=== PATIENT | female | born 1990 | race Caucasian/White ===

== ENCOUNTER 2021-07-04 05:16 | Observation (INO) ==
--- NOTE | 2021-06-29 08:42 | Anesthesiology Consultation ---
Date of Service June 29, 2021 Assessment & Plan (1) Encounter for pre-operative examination: - COVID screening: Per assessment on 06/29: No known COVID-19 positive contacts or current COVID-19 related symptoms. Travel screen negative. Patient vaccinated. Surgeon arranging preop COVID testing. Awaiting results. - S/P lap tod (09/02/20): Grade 1 view, MAC#3, ETT 7.0 at [facility] Chart Review Chart Review: Acceptable Risk for Surgery and Patient NOT seen in Pre Admission Testing History Surgery Operation Date: 07/04/21 07:15 Proposed Procedures p Abdominoplasty (Insurance Panniculectomy) - MD bin Bruce Open Ventral Hernia Repair, Possible Mesh - Rigoberto Newsome DO Height/Weight Height: 5 ft 0.75 in Weight: 84.368 kg Allergies Allergy/AdvReac Type Severity Reaction Status Date / Time Sulfa (Sulfonamide Allergy Severe Rash/Hives Verified 09/13/20 14:16 Antibiotics) citric acid [From Bicitra] AdvReac Severe N/V Verified 06/29/21 08:39 sodium citrate [From Bicitra] AdvReac Severe N/V Verified 06/29/21 08:39 sulfates Allergy Severe Difficulty Uncoded 09/13/20 14:16 Breathing Medications Home Medications Medication Instructions Recorded Confirmed Last Taken albuterol sulfate 90 mcg/actuation 2 puff INHALATION Q6H PRN 06/07/20 06/29/21 Unknown aerosol inhaler topiramate 50 mg tablet 50 mg PO QAM 06/07/20 06/29/21 09/01/20 20:00 levothyroxine 88 mcg capsule 88 mcg PO QAM 09/01/20 06/29/21 09/01/20 06:00 diazepam 5 mg tablet (Valium) 5 mg PO Q6H PRN #14 tab 06/22/21 06/29/21 Unknown oxycodone-acetaminophen 5 mg-325 1 tab PO Q4H PRN #18 tab 06/22/21 06/29/21 Unknown mg tablet (Endocet) Past Medical History Medical History Asthma exercise induced, well controlled History of COVID-19 02/2021 > "mild symptoms" > resolved Hypothyroidism Iron deficiency hx iron def anemia per PCP records Mixed hyperlipidemia Renal stone hx Past Family History Family History Father Hypertension Heart disease Mother Diabetes Ovarian cancer Lung disease Grandmother Diabetes Past Surgical History Surgical History H/O section x 5 05/02/09,05/24/06, 01/13/19, 08/31/11, 10/12/14 Surrogate 2011, 2014, 2016 2014 Carrying embryo from another couple History of dilatation and curettage History of esophagogastroduodenoscopy (EGD) History of lithotripsy cystouretero with lithotripsy (right) History of removal of ureteral stent right Hx laparoscopic cholecystectomy Laparoscopic Cholecystectomy Dr. Newsome 09/02/2020 S/P tonsillectomy and adenoidectomy Status post tubal ligation 2016 Social History Smoking Status: Never smoker Do You Dip or Chew Tobacco: No Hx Alcohol Use: Yes alcohol intake frequency: holidays/special occasions only Hx Substance Use: No substance use type: does not use Lab Results Anesthesia Preop Results Results Anesthesia Widget: WBC 7.64 K/uL (4.8-10.8) 06/27/21 Hgb 12.8 g/dL (12.0-16.0) 06/27/21 Hct 40.3 % (37-47) 06/27/21 Plt 406 K/uL (130-400) H 06/27/21 Na 136 mmol/L (136-145) 06/27/21 K 3.7 mmol/L (3.5-5.1) 06/27/21 Cl 105 mmol/L (98-107) 06/27/21 CO2 26 mmol/L (21-32) 06/27/21 BUN 12 mg/dl (6-23) 06/27/21 Creat 0.65 mg/dl (0.6-1.2) 06/27/21 Glucose Level 83 mg/dl (70-99(Fasting)) 06/27/21 PT 10.4 Seconds (9.0-12.0) 06/27/21 INR 1.0 (0.9-1.1) 06/27/21 Testing Electrocardiogram Date: 08/23/20 Findings: + NSR @ (75)
[2021-07-04] MEDS ORDERED: LR 15ML/HR IV SCH (06:00)
[2021-07-04] MEDS ORDERED: ceFAZolin 2000MG 2,000 MG/15 ML SYR IV SCH (06:00)
[2021-07-04] MEDS ORDERED: EPINEPHrine INJ 1 MG/ML AMP ONE (06:35)
[2021-07-04] MEDS ORDERED: BUPIVACAINE 0.5 % 5 MG/1 ML MPF 30ML VIAL ONE (06:36)
[2021-07-04] MEDS ORDERED: LIDOCAINE 1% LOCAL 20 ML VIAL ONE (06:36)
[2021-07-04] MEDS ORDERED: LIDOCAINE 1%/EPINEPHRINE 1:100,000 50 ML VIAL ONE (06:36)
[2021-07-04] MEDS ORDERED: BUPIVACAINE 0.25% 30 ML VIAL ONE (06:36)
[2021-07-04] MEDS ORDERED: ATROPINE SULFATE 0.1 MG/ML 10ML SYR IV PRN (06:49)
[2021-07-04] MEDS ORDERED: ePHEDrine sulfate 50 MG/ML AMP IV PRN (06:49)
[2021-07-04] MEDS ORDERED: DROPERIDOL 5 MG/2 ML VIAL IV PRN (06:49)
[2021-07-04] MEDS ORDERED: ONDANSETRON INJ 2 MG/ML 2 ML VIAL IV PRN ×2 (06:49→13:30)
[2021-07-04] MEDS ORDERED: fentaNYL citrate 100 MCG/2 ML VIAL ONE ×2 (06:50→09:40)
[2021-07-04] MEDS ORDERED: MIDAZOLAM HCL 1 MG/ML 2ML VIAL ONE ×3 (06:50→06:53)
[2021-07-04] MEDS ORDERED: DEXAMETHASONE SOD INJ 4 MG/ML VIAL ONE (06:50)
[2021-07-04] MEDS ORDERED: HYDROmorphone INJ 2 MG/ML SYR/VIAL ONE (06:50)
[2021-07-04] MEDS ORDERED: ROCURONIUM BROMIDE 10 MG/ML 5 ML VIAL IV ONE (06:50)
[2021-07-04] MEDS ORDERED: ONDANSETRON INJ 2 MG/ML 2 ML VIAL ONE (06:50)
[2021-07-04] MEDS ORDERED: LIDOCAINE 2% 2 ML VIAL/AMP(20MG/ML) INFIL ONE (06:50)
[2021-07-04] MEDS ORDERED: PROPOFOL IV EMULSION 10 MG/ML 20 ML VIAL IV ONE (06:50)
--- NOTE | 2021-07-04 07:00 | History & Physical Bridge Note ---
Date of Service July 04, 2021 History & Physical Bridge Note I have examined the patient, reviewed the History & Physical and in the interval since the performance of the History & Physical I have noted the following changes of clinical significance: no changes noted
[2021-07-04] MEDS ORDERED: BUPIVACAINE 0.5 % 5 MG/1 ML PF 10ML VIAL ONE (07:01)
[2021-07-04] MEDS ORDERED: ACETAMINOPHEN 1000 MG/100 ML IV IV ONE (07:02)
--- NOTE | 2021-07-04 07:15 | History & Physical Report ---
Date of Service July 04, 2021 Assessment & Plan (1) Hernia of abdominal cavity: Plan: Dr. Soler to perform the abdominoplasty portion of the procedure. Once the abdominal wall is exposed I will repair any and all hernias. We discussed there may or may not need to use mesh depending on the size and characteristics of the hernia. We discussed bleeding, infection, infection of mesh, injury to other organs, blood clots etc. I have answered all of her questions. We will proceed today with repair of ventral hernia/hernias possible mesh (2) Abdominal pannus: (3) Metabolic syndrome: History of Present Illness Primary Care Provider: Fabian Fisher Patient here for a combined procedure with Dr. Soler. The procedures panniculectomy as well as repair of ventral hernia x2. Is been no change to her health history since I seen her last. She has imaging that confirms the hernias. Allergies Allergy/AdvReac Type Severity Reaction Status Date / Time Sulfa (Sulfonamide Allergy Severe Rash/Hives Verified 07/04/21 05:49 Antibiotics) citric acid [From Bicitra] AdvReac Severe N/V Verified 07/04/21 05:49 sodium citrate [From Bicitra] AdvReac Severe N/V Verified 07/04/21 05:49 sulfates Allergy Severe Difficulty Uncoded 07/04/21 05:49 Breathing Home Medications Medication Instructions Recorded Confirmed Type albuterol sulfate 90 mcg/actuation 2 puff INHALATION Q6H PRN 06/07/20 07/04/21 History aerosol inhaler topiramate 50 mg tablet 50 mg PO QAM 06/07/20 07/04/21 History levothyroxine 88 mcg capsule 88 mcg PO QAM 09/01/20 07/04/21 History diazepam 5 mg tablet (Valium) 5 mg PO Q6H PRN #14 tab 06/22/21 07/04/21 Rx oxycodone-acetaminophen 5 mg-325 1 tab PO Q4H PRN #18 tab 06/22/21 07/04/21 Rx mg tablet (Endocet) Past Med/Surg History Medical History Asthma exercise induced, well controlled History of COVID-19 02/2021 > "mild symptoms" > resolved Hypothyroidism Iron deficiency hx iron def anemia per PCP records Mixed hyperlipidemia Renal stone hx Surgical History H/O section x 5 05/02/09,05/24/06, 01/13/19, 08/31/11, 10/12/14 Surrogate 2011, 2014, 2016 2014 Carrying embryo from another couple History of dilatation and curettage History of esophagogastroduodenoscopy (EGD) History of lithotripsy cystouretero with lithotripsy (right) History of removal of ureteral stent right Hx laparoscopic cholecystectomy Laparoscopic Cholecystectomy Dr. Newsome 09/02/2020 S/P tonsillectomy and adenoidectomy Status post tubal ligation 2016 Family History Father Hypertension Heart disease Mother Diabetes Ovarian cancer Lung disease Grandmother Diabetes Social History Smoking Status: Never smoker Second Hand Exposure: No; Do You Dip or Chew Tobacco: No; Tobacco Cessation Education Requested by Patient: No Hx Alcohol Use: Yes Hx Substance Use: No Preferred Language: Upper Sorbian Communication Ability: Effective Tool Marker Required: No Beliefs That Will Affect Care: None marital status: Current Living Situation: Family current occupational status: employed 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 Other Information That Helps Us Care for You: No Feels Safe at Home: Yes Safety Concerns: Feels Safe At This Time Assistive Devices: Glasses Review of Systems All systems reviewed & are unremarkable except as noted in HPI & below Physical Exam Constitutional: WD/WN, vitals as above no acute distress and not ill appearing Eyes: PERRL, conjunctivae normal, anicteric sclerae EOM intact bilaterally ENMT: external ear and nose normal, oropharynx normal Ears: no hearing impairment Neck: trachea midline, no thyromegaly Respiratory: normal respiratory effort; no respiratory distress and does not use accessory muscles Cardiovascular: Rate/Rhythm: regular rate and regular rhythm Gastrointestinal (Abdomen): Soft. 1 palpable hernia near the umbilicus. Questionable small hernia upper midline. No other palpable abnormalities. Positive abdominal pannus. Skin: no rashes, warm and dry Psychiatric: Orientation: alert, oriented x 3 and cooperative Results & Data ([facility]) Vital Signs (Past 12 Hours) Vital Signs Temp Pulse Resp BP Pulse Ox 07/04/21 05:42 37.2 C 95 H 20 110/69 99
[2021-07-04] MEDS ORDERED: TISSEEL FIBRIN SEALANT 4ML TOP ONE (08:18)
[2021-07-04] MEDS ORDERED: KETAMINE 50 MG/5 ML SYRINGE ONE (08:25)
[2021-07-04] MEDS ORDERED: SUGAMMADEX SODIUM 200 MG/2 ML VIAL IV ONE (09:15)
--- NOTE | 2021-07-04 09:16 | Operative Report ---
PG Post Operative Report Pre & Post Diagnosis Operation Date: 07/04/21 07:15 Pre-Op Diagnosis: Abdominal Pannus and Ventral Hernia Post-Op Diagnosis: Abdominal Pannus and Ventral Hernia I identified the patient and participated in the time-out.: Yes Procedure Operation Date: 07/04/21 07:15 Actual Procedures p Abdominoplasty (Insurance Panniculectomy)(Not Applicable) - Marisol Soler MD s Open Ventral Hernia Repair x 3. (Not Applicable) - Rigoberto Newsome DO Surgeon Rigoberto Newsome DO Physical Meteorologist Dr. Soler Estimated Blood Loss 5 Findings Consistent with Post-Op Diagnosis Specimens None Description of Procedure After informed consent was obtained the patient had been taken back to the operating room. Please see Dr. Soler's note for the majority of the procedure. She had made a hip to hip incision as well as midline incision and had exposed essentially the entire abdominal wall. There were 3 separate hernias. One below the umbilicus one right at the umbilicus and one above the umbilicus. All were relatively small and tension-free. They did not require mesh. The patient was already intubated and the panniculectomy flap created. I scrubbed into the case. Dr. Soler assisted me throughout my portion of the case. We began with the supraumbilical hernia which measured about 2 cm in greatest dimension. There was some preperitoneal fat incarcerated within it. I excised the fat using electrocautery. I used 0 Ethibond in simple interrupted fashion to primarily close the defect. Again because of the lack of tension and relatively small size I opted to not use mesh. I closed the infraumbilical hernia the exact same way. There was no incarceration within it so I closed the fascial defect again using 0 Ethibond simple erupted fashion. For the umbilical hernia I created a small incision on the right lateral side of the umbilical stalk. After opening the fascia I used blunt finger penetration to go through the peritoneum. I then inverted the fascia exposing a 1 cm fascial defect. 0 Ethibond was used to primarily close the defect from the inside. Once it was closed I then closed the fascial incision also using 0 Ethibond in simple erupted fashion. This concluded my portion of the case. I scrubbed out of the case at this point in time. Again please see Dr. Soler's dictation for the majority of the procedure. I attest to the content of the Intraoperative Record and any orders documented therein. Any exceptions are noted below.
--- NOTE | 2021-07-04 11:17 | Post Operative Brief Note ---
PG Immediate Post Op with CF Date of Surgery July 04, 2021 Pre & Post Diagnosis Operation Date: 07/04/21 07:15 Pre-Op Diagnosis: Abdominal Pannus and Ventral Hernia Post-Op Diagnosis: Abdominal Pannus and Ventral Hernia I identified the patient and participated in the time-out.: Yes Procedure Operation Date: 07/04/21 07:15 Actual Procedures p Abdominoplasty (Insurance Panniculectomy)(Not Applicable) - Marsiol Soler MD s Open Ventral Hernia Repair(Not Applicable) - Rigoberto Newsome, Surgeon Marisol Soler MD Renewable Energy Consultant Dr. Soler Estimated Blood Loss 25 Findings Consistent with Post-Op Diagnosis Specimens Specimen Description: A. Pannus Drains Crews Catheter and Sean-Mccoy Drain (x2)
[2021-07-04] MEDS: fentaNYL citrate 100 MCG/2 ML VIAL IV PRN ×2 (11:40→11:49)
[2021-07-04] MEDS ORDERED: diphenhydrAMINE 50 MG/ML VIAL IV ONE (12:00)
[2021-07-04] MEDS ORDERED: diphenhydrAMINE 50 MG/ML VIAL ONE (12:02)
[2021-07-04] MEDS: HYDROmorphone INJ 2 MG/ML SYR/VIAL IV PRN ×2 (12:04→12:21)
--- NOTE | 2021-07-04 12:09 | Operative Report ---
PG Post Operative Report Pre & Post Diagnosis Operation Date: 07/04/21 07:15 Pre-Op Diagnosis: Abdominal Pannus and Ventral Hernia Post-Op Diagnosis: Abdominal Pannus and Ventral Hernia I identified the patient and participated in the time-out.: Yes Procedure Operation Date: 07/04/21 07:15 Actual Procedures p Abdominoplasty (Insurance Panniculectomy)(Not Applicable) - Marisol Soler MD s Open Ventral Hernia Repair(Not Applicable) - Rigoberto Newsome DO Surgeon Marisol Soler MD Project Administrator Dr. Soler Estimated Blood Loss 25 Findings Consistent with Post-Op Diagnosis Specimens pannus to pathology Drains JPx2 Anesthesia Type General Regional Complications none Indications intertrigo, large rectus diastasis, multiple ventral hernias Description of Procedure Risks, benefits, and alternatives of the procedure were explained to the patient who agreed and signed consent. She was identified and marked in the preoperative holding area. She was brought to the operating room where she was positioned supine and placed under general anesthesia without incident. Crews catheter was placed. Surgical site was prepped and draped sterilely. A time-out procedure was performed.I reassessed my markings which included a lower horizontal abdominal incision just below her prior Pfannenstiel incision. Incision was marked bilaterally to the ASIS. I began by injecting 1% lidocaine with epinephrine along the planned incision. The lower abdominal incision was made using a 15-blade scalpel to incise epidermis and superficial dermis followed by electrocautery to incise deep dermis, subcutaneous fat, Roberto's fascia down to the abdominal wall. Electrocautery was used to elevate the anterior abdominal skin flap ligating the perforating vessels with electrocautery. Dissection was carried up to the level of the umbilicus in the midline. At this point, a 15-blade scalpel was used to circumscribe the umbilicus. A vertical midline incision was then made from the incision to the umbilicus and divided in the midline using electrocautery. The umbilicus was then dissected out using electrocautery down to abdominal wall. The umbilical stalk appeared viable throughout the procedure.I continued undermining the abdominal wall skin flap above the umbilicus to the xiphoid process, significantly narrowing the dissection to avoid jeopardizing blood supply.3 hernias were encountered- lower abdomen at right margin of the linea alba, small umbilical hernia and midepigastric midline in the linea alba. Dr. Newsome performed repair of these. Please see his separately dictated report. I began repair of the rectus diastasis, which was about 10 cm in greatest diameter and extended nearly the full length of the abdomen, widest above the umbilicus. Plication from the xiphoid to the umbilicus and from the umbilicus to the pubic symphysis was performed using 0 Ethibond interrupted [id number] sutures. 0 Prolene running suture was then placed to oversew the [id number] sutures and reinforced the repair. At this point, the bed was flexed and the mid portion of the superior skin flap was inset above the mons pubis using 2-0 Vicryl suture. Skin flaps were marked for excision. A 15- blade scalpel was used to make these incisions and the incision was deepened through dermis, subcutaneous fat, Roberto's fat using electrocautery. 15 Wolof David drains were placed in the wound bed and brought out through a separate stab incision in the mons pubis. The drains were sutured into place using 3-0 nylon. The umbilicus was brought out through an inverted triangular incision in the abdominal wall. This was performed using a 15-blade scalpel. Tisseel was sprayed under the flap and into the wound prior to closure. Wound closure was then begun lateral to medial using 2-0 Vicryl Roberto's fascia sutures, 2-0 Vicryl deep dermal sutures, 2-0 PDO running superficial Quill suture, 3-0 Monocryl running subcuticular suture. Umbilicus was brought out through the inverted triangle incision and was sutured into place using 4-0 chromic half buried horizontal mattress sutures. The umbilicus was dressed using Xeroform and the incision was dressed using a Provena customizable VAC followed by dry dressings and an abdominal binder. The procedure was tolerated well. The patient was awakened and transferred to recovery in satisfactory condition. Rocio Peters PA-C was present and scrubbed throughout the procedure, assisting retraction and simultaneous wound closure. I attest to the content of the Intraoperative Record and any orders documented therein. Any exceptions are noted below.
--- NOTE | 2021-07-04 12:48 | Anesthesiology Progress Note ---
Date of Service July 04, 2021 Anesthesia Post Procedure Vital Signs Vital Signs: Temp Pulse Pulse Resp BP Pulse Ox 07/04/21 12:25 92 H 12 134/86 100 07/04/21 12:15 95 H 13 125/84 100 07/04/21 12:05 94 H 13 120/78 100 07/04/21 11:55 96 H 8 L 126/85 100 07/04/21 11:45 88 13 127/76 100 07/04/21 11:35 99 H 15 124/85 100 07/04/21 11:27 36.7 C 115 H 16 129/71 100 07/04/21 05:42 37.2 C 95 H 20 110/69 99 Pain Intensity Abdomen: Pain Intensity: 6 Transfer of Care Handoff Completed per policy Notes Mental Status: alert / awake / arousable and participated in evaluation Patient Amnestic to Procedure: Yes Nausea / Vomiting: adequately controlled Pain: adequately controlled Airway Patency, RR, SpO2: stable & adequate BP & HR: stable & adequate Hydration State: stable & adequate Anesthetic Complications: no major complications apparent and Pt Satisfied with anesthetic care
[2021-07-04] MEDS ORDERED: MoRPHine SULFATE 2 MG/ML CARP IV PRN (13:30)
[2021-07-04] MEDS ORDERED: oxyCODONE/ACETAMINOPHEN 5mg/325mg TAB PO PRN (13:30)
[2021-07-04] MEDS ORDERED: MoRPHine SULFATE 4 MG/ML 1 ML CARP\\VIAL IV PRN (13:30)
[2021-07-04] MEDS ORDERED: LORazepam 0.5 MG TAB PO PRN (13:30)
[2021-07-04] MEDS ORDERED: diphenhydrAMINE 50 MG/ML VIAL IV PRN (13:30)
[2021-07-04] MEDS ORDERED: diphenhydrAMINE Capsule 25 MG CAP PO PRN (13:30)
[2021-07-04] MEDS ORDERED: ACETAMINOPHEN 325 MG TAB PO PRN (13:30)
[2021-07-04] MEDS ORDERED: MoRPHine SULFATE 2 MG/ML CARP ONE (13:46)
--- NOTE | 2021-07-04 13:57 | Surgery Progress Note ---
Date of Service July 04, 2021 Assessment & Plan (1) Abdominal pannus: (2) Hernia of abdominal cavity: Plan: Ofe is resting comfortably and wound vac is now holding suction properly. No signs of active bleeding on exam. She is aware that Rocio will be discharging her around lunchtime tomorrow. Discharge instructions will be reviewed prior to discharge. All questions answered. Admission and Anticipated Discharge Date Admission Date: July 04, 2021 Subjective Ofe is resting comfortably in bed on med/surg floor. She is a few hours s/p Abdominoplasty with Dr. Soler and s/p Open Ventral Hernia Repair with Dr. Newsome. Wound vac specialist, Mika Lozano, is at bedside and was able to get wound vac to hold suction properly. Physical Exam Physical Exam: Abdominal binder removed to view wound vac, which is holding suction and working properly. No evidence of active bleeding. JASON drains in place with bloody drainage- no presence of clots in drain bulbs. Binder reattached. Results & Data ([facility]) Vital Signs (Past 12 Hours) Vital Signs Temp Pulse Pulse Resp BP Pulse Ox 07/04/21 13:15 36.3 C L 95 H 16 123/85 100 07/04/21 12:55 92 H 14 132/88 100 07/04/21 12:45 85 14 121/84 99 07/04/21 12:35 89 16 133/76 99 07/04/21 12:25 92 H 12 134/86 100 07/04/21 12:15 95 H 13 125/84 100 07/04/21 12:05 94 H 13 120/78 100 07/04/21 11:55 96 H 8 L 126/85 100 07/04/21 11:45 88 13 127/76 100 07/04/21 11:35 99 H 15 124/85 100 07/04/21 11:27 36.7 C 115 H 16 129/71 100 07/04/21 05:42 37.2 C 95 H 20 110/69 99 PG Care Time/CCT Total # of Minutes Spent Total Time Spent with Patient: Total time spent is greater than 50% in coordination of care (as documented) at patient's floor/unit and/or counseling patient: Coding Level of Care Code None Diagnoses Abdominal pannus E65 Hernia of abdominal cavity K46.9
[2021-07-04] MEDS ORDERED: PROMETHAZINE HCL 12.5 MG in SODIUM CHLORIDE 0.9% 50 ML IV PRN (14:00)
[2021-07-04] MEDS: D5W AND 1/2NSS + 20MEQ KCL 20 MEQ/1,000 ML BAG IV SCH (14:19)
[2021-07-04] MEDS: ceFAZolin 2000MG 2,000 MG/15 ML SYR IV SCH (16:08)
[2021-07-04] MEDS: oxyCODONE/ACETAMINOPHEN 5mg/325mg TAB PO PRN (21:55)
[2021-07-05] MEDS: ceFAZolin 2000MG 2,000 MG/15 ML SYR IV SCH (00:17)
[2021-07-05] MEDS: diazePAM 5 MG TABLET PO PRN ×3 (00:17→13:58)
[2021-07-05] MEDS: D5W AND 1/2NSS + 20MEQ KCL 20 MEQ/1,000 ML BAG IV SCH (02:48)
[2021-07-05] MEDS: oxyCODONE/ACETAMINOPHEN 5mg/325mg TAB PO PRN ×3 (05:43→15:03)
[2021-07-05] MEDS ORDERED: LEVOTHYROXINE SODIUM 88 MCG TABLET PO SCH (06:30)
[2021-07-05] MEDS ORDERED: TOPIRAMATE 50 MG TAB PO SCH (09:00)
[2021-07-05] MEDS ORDERED: MULTIVITAMIN TAB PO SCH (09:00)
--- NOTE | 2021-07-05 11:41 | Surgery Progress Note ---
Date of Service July 05, 2021 Assessment & Plan (1) Abdominal pannus: Plan: POD #1 s/p abdominoplasty and ventral hernia repair. Ofe is doing very well. She has met criteria to be d/c home. DC home today with office follow-up tomorrow. Post-op instructions were reviewed with the patient. Admission and Anticipated Discharge Date Admission Date: July 04, 2021 Supervising Physician Co-Signing Physician Notes I personally saw and examined this patient and agree with the assessment and plan. Will discharge home today with office followup tomorrow. Subjective Ofe is resting comfortably in a chair. She had just completed 10 walking laps in the hallway. Pain is well controlled. She is tolerating a regular diet. Physical Exam Physical Exam: on exam- drains with serosang output. wound vac holding suction. no erythema of the soft tissue Results & Data ([facility]) Vital Signs (Past 12 Hours) Vital Signs Temp Pulse Resp BP Pulse Ox 07/05/21 11:19 37.0 C 90 18 107/72 100 07/05/21 07:32 37.0 C 90 18 107/72 100 07/05/21 03:08 36.8 C 92 H 16 101/68 99 PG Care Time/CCT Total # of Minutes Spent Total Time Spent with Patient: Total time spent is greater than 50% in coordination of care (as documented) at patient's floor/unit and/or counseling patient: Coding Level of Care Code None Diagnoses Abdominal pannus E65
--- NOTE | 2021-07-07 09:50 | Discharge Summary ---
Date of Service July 07, 2021 Admission HPI Per Admitting Provider Patient here for a combined procedure with Dr. Soler/Dr. Newsome. The procedures panniculectomy as well as repair of ventral hernia x2. Is been no change to her health history since I seen her last. She has imaging that confirms the hernias. Admission Exam Per Admitting Provider see admission H&P Principal Diagnosis abdominal pannus, ventral hernia Discharge Exam VSS. Wound vac functioning with good suction. drains with serosang output. Discharge Data Allergies Allergy/AdvReac Type Severity Reaction Status Date / Time Sulfa (Sulfonamide Allergy Severe Rash/Hives Verified 07/04/21 05:49 Antibiotics) citric acid [From Bicitra] AdvReac Severe N/V Verified 07/04/21 05:49 sodium citrate [From Bicitra] AdvReac Severe N/V Verified 07/04/21 05:49 sulfates Allergy Severe Difficulty Uncoded 07/04/21 05:49 Breathing Procedures Performed Operation Date: 07/04/21 07:15 Actual Procedures p Abdominoplasty (Insurance Panniculectomy)(Not Applicable) - MD bin Bruce Open Ventral Hernia Repair(Not Applicable) - Rigoberto Newsome, Ordered Studies 07/04/21 07:49 US - OR guided needle placemen Routine Hospital Course (1) Abdominal pannus: Patient presented to [facility] with history of abdominal pannus. She was taken to the OR and underwent panniculectomy with cosmetic add-on for abdominoplasty. She had 3 ventral hernias repaired intraoperatively by Dr. Newsome. There were no intraoperative complications. She was taken to recovery and transferred to med/surg for observation. On POD#1, she was feeling well. She was tolerating a regular diet and ambulating. She was able to void after catheter was removed. On exam, her vitals were stable. Her incisions were CDI with wound vac in place. Her drains had appropriate output. She was discharged home with instructions to follow-up in the office in one day. Total Time Total Time Spent Total Time Spent (In Minutes): 15 Discharge Plan Discharge Items Patient Disposition: Home - Self-Care Reason For Visit: Abdominal Pannus and Encounter for Cosmetic Surger Discharge Diagnosis: s/p abdominoplasty and ventral hernia repair Activity: As commented below Non-emergency contact: Surgeon Call non-emergency contact if: you have any medication questions, your pain is not controlled, you have a fever, your wound has increased redness and your wound has increased drainage Follow-up/Referrals: Rocio Peters PA-C [Physician Orderlies Teacher] - 07/06/21 9:30 am Rigoberto Newsome DO [Surgeon] - 07/19/21 11:45 am Fabian Fisher [Primary Care Provider] - Diet: Regular Addtl Attending Provider Instructions: ACTIVITY RECOMMENDATIONS: __Normal activities _x_No bending, lifting or straining. Do not stand straight until it is comfortable to do so __No driving __Driving allowed when you are off pain medications _x_Walking permitted __You should have help at home for ___ days DRESSINGS: __No dressings required _x_Keep dressings dry/in place until first office visit. You must leave binder on at all times. Charge wound vac as needed. __Remove dressings ___ and leave dressings off __Apply ice ___ days __Remove dressings and reapply garment __Apply antibiotic ointment (Bacitracin, Neosporin, etc) to wounds 3-4 times/day for 10 days BATHING: _x_Keep dressings dry _x_Sponge bathing permitted away from wound vac __Showering permitted _x_No swimming, hot tubs or soaking in a tub MEDICATIONS: Resume previous medications unless instructed otherwise by your surgeon. _x_Do not use aspirin, Motrin, Advil or Ibuprofen as these may promote bleeding. Please use Tylenol. _x_Prescription(s) provided: pain medication was provided at your last office visit OTHER INSTRUCTIONS: _x_Record drain output 2-3 times per day. Drains are ready to be removed when output is 10cc/24 hours for 2 days. SPECIAL CARE INSTRUCTIONS: * It is normal to have a mild fever after surgery. If your temperature is hig her than 101.5 degrees F, please call the office at [phone]. * Constipation is a typical side effect of pain medication. An [id number] stool softener will help relieve this. * Leaking around surgical drains may occur and should not cause concern. Sometimes these drains become clogged. If this happens, remove the bulb and milk the clot out of the tube, then replace the bulb. * Drainage from wounds after liposuction is normal and should be expected. Garments will become soiled. You should protect furniture and bedding. This drainage should mostly subside within 2-3 days. Leave garments in place unless instructed to remove them. * If you have unusual drainage from a wound or are concerned you have an infection or have any questions or concerns, please call the office at [phone]. FOLLOW UP VISIT: If not already scheduled, please call the office, , when you return home after surgery to schedule an appointment to be seen in __1_ days. Pending Studies at Discharge: Yes Studies:: pathology Stand-Alone Forms: My [facility], Opioid Pain Management, Smoking Cessation Medications and DC Order Prescriptions: Continued albuterol sulfate 90 mcg/actuation HFA aerosol inhaler 2 puff inhalation Q6H PRN (Reason: Shortness Of Breath) RF: 0 topiramate 50 mg tablet 50 mg PO QAM RF: 0 levothyroxine 88 mcg Capsule 88 mcg PO QAM RF: 0 No Action diazepam [Valium] 5 mg tablet 5 mg PO Q6H PRN (Reason: muscle spasm) Qty: 8 RF: 0 oxycodone-acetaminophen [Percocet] 5-325 mg tablet 1 tab PO Q4H PRN (Reason: pain) Qty: 10 RF: 0 Discharge Orders: Discharge Order (Routine); Ordered 07/05/21 Ordered By: Rocio Mortensen/Other Patient Handouts: DVT Post Op Prevention Admission Data Admit Date/Time: 07/04/21 11:29 Attending Provider: Marisol Soler Admit Provider: Marisol Soler Primary Care Provider: Fabian Fisher Other Interventions: Discharge Summary Assessment (RN) Last Done: 07/05/21 11:19 Coding Level of Care Code 99128 OBS Care - Discharge Diagnoses Abdominal pannus E65
== END 2021-07-05 16:20 | disposition home or self-care (01) ==
LOC: ASU 05:16 → 3N 05:16